=== PATIENT | male | born 1975 | race African-American/Black ===

== ENCOUNTER 2018-02-13 05:42 | Inpatient (IN) | payer OTHER ==
[~2018-02-13] VITALS: Ht 172.7 cm; Wt 71.2 kg
[~2018-02-13 05:42] MED LIST: NKM
[2018-02-13] MEDS ORDERED: oxyCONTIN 20mg tab ORAL ONE (06:00)
[2018-02-13] MEDS ORDERED: ceFAZolin 1gm in D5W 55ml IVPB ONE (06:00)
[2018-02-13] MEDS ORDERED: celeBREX 200mg Cap **SURGERY PATIENTS ONLY ORAL ONE (06:00)
[2018-02-27] VITALS (12 sets, daily range): BP systolic 120–154; BP diastolic 69–96
--- NOTE | 2018-02-27 06:55 | Pre-Procedure Note/Attestation ---
Pre-Procedure Note/Attestation Complete Prior to Procedure Planned Procedure: right Procedure Narrative: rt total hip arthroplasty Indications for Procedure Pre-Operative Diagnosis: rt hip arthritis Attestation I attest that I discussed the nature of the procedure; its benefits; risks and complications; and alternatives (and the risks and benefits of such alternatives ), prior to the procedure, with the patient (or the patient's legal member service representative). I attest that, if there was a reasonable possibility of needing a blood transfusion, the patient (or the patient's legal member service representative) was given the [facility] standardized written summary, pursuant to the Patrice Yue Blood Safety Act ([place] Health and Safety Code # 1645, as amended). I attest that I re-evaluated the patient just prior to the surgery and that there has been no change in the patient's H&P, except as documented below: none Roney Rubin MD Feb 27, 2018 06:55
[2018-02-27] MEDS ORDERED: oxyCONTIN 20mg tab ORAL ONE (07:00)
[2018-02-27] MEDS ORDERED: celeBREX 200mg Cap **SURGERY PATIENTS ONLY ORAL ONE (07:00)
[2018-02-27] MEDS ORDERED: ceFAZolin sod 1 GM in NS 55 ML IVPB ONE (07:00)
[2018-02-27] MEDS ORDERED: HYDROcodone/Acetamin 7.5/325 tab ORAL PRN (07:15)
[2018-02-27] MEDS ORDERED: HYDROmorphone 1mg/ml Carpuject SUBQ PRN (07:15)
[2018-02-27] MEDS ORDERED: Milk of Magnesia 30ml Ud ORAL PRN (07:15)
[2018-02-27] MEDS ORDERED: Duramorph PF 5mg/10ml amp ONE (08:17)
[2018-02-27] MEDS ORDERED: Bupivacaine 0.5% Inj 30 ml vial INJ ONE (08:18)
[2018-02-27] MEDS ORDERED: Bacitracin 50000 Units Vial ONE (08:32)
[2018-02-27] MEDS ORDERED: Lidocaine 1% MPF 10mg/ml 5ml ONE (08:44)
[2018-02-27] MEDS ORDERED: Midazolam 2mg/2ml Inj ONE (08:44)
[2018-02-27] MEDS ORDERED: Propofol 200mg/20ml IV ONE (08:44)
[2018-02-27] MEDS ORDERED: fentaNYL 100 mcg/2 mL IV ONE (08:44)
[2018-02-27] MEDS ORDERED: Tranexamic Acid 1,000 MG in NS 65 ML IVPB ONE (08:45)
[2018-02-27] MEDS ORDERED: LR 1000ml ONE (09:00)
[2018-02-27] MEDS ORDERED: NS Irrig 1000ml ONE (09:00)
[2018-02-27] MEDS ORDERED: Sterile Water Irrig 1000ml IRRIG ONE (09:00)
[2018-02-27] MEDS ORDERED: LR 1000ml 1,000 ML IVLG SCH (10:18)
--- NOTE | 2018-02-27 10:18 | Anethesia Preoperative Eval ---
Anesthesia Pre-op PMH/ROS General Date of Evaluation: Feb 27, 2018 Time of Evaluation: 09:05 Anesthesiologist: Nilson ASA Score: ASA 2 Mallampati Score Class I : Soft palate, uvula, fauces, pillars visible Class II: Soft palate, uvula, fauces visible Class III: Soft palate, base of uvula visible Class IV: Only hard plate visible Mallampati Classification: Class II Surgeon: Caryn Diagnosis: R hip DJD Surgical Procedure: R hip arthroplasty Anesthesia History: none Family History: no anesthesia problems Allergies: Coded Allergies: No Known Allergies (Unverified , 02/08/18) Medications: see eMAR Past Medical History Cardiovascular: Denies: HTN, CAD, DE, valve dz, arrhythmia, other Pulmonary: Denies: asthma, COPD, JESSEE, other Gastrointestinal/Genitourinary: Reports: GERD - mild; Denies: CRI, ESRD, other Neurologic/Psychiatric: Reports: depression/anxiety, other - chronic pain; Denies: dementia, CVA, TIA Endocrine: Denies: DM, hypothyroidism, steroids, other HEENT: Denies: cataract (L), cataract (R), glaucoma, SOKAOGON (L), SOKAOGON (R), other Hematology/Immune: Denies: anemia, DVT, bleeding disorder, other Musculoskeletal/Integumentary: Reports: DJD; Denies: OA, RA, DDD, edema, other PMH Narrative: as above PSxH Narrative: R femur ORIF and hardware removal Anesthesia Pre-op Phys. Exam Physician Exam Last Vital Signs Date Time Temp Pulse Resp B/P (MAP) Pulse Ox O2 Delivery O2 Flow Rate FiO2 02/27/18 07:33 Room Air 02/27/18 07:10 97.3 60 18 128/84 (99) 100 97.3 Constitutional: NAD Neurologic: CN 2-12 intact Cardiovascular: RRR, no M/R/G Respiratory: CTA Gastrointestinal: S/NT/ND Airway Exam Mallampati Score: Class II MO: full Neck: flexible ROM: full Teeth: intact Dentures: no upper, no lower Anesthesia Pre-op A/P Labs see chart Studies Pre-op Studies: EKG - NSR Risk Assessment & Plan Assessment: ASA 2 Plan: SAB with GA LMA for airway. Status Change Before Surgery: No Pre-Antibiotics Drug: Ancef 2gr. Given Within 1 Hr of Incision: Yes Time Given: 10:02 Aleksandr Devine MD Feb 27, 2018 10:18
[2018-02-27] MEDS ORDERED: Bacitracin 50000 Units Vial IRRIG ONE (10:26)
[2018-02-27] MEDS ORDERED: NS Irrig 2000ml IRRIG ONE (10:27)
[2018-02-27] MEDS ORDERED: fentaNYL 100 mcg/2 mL IV PRN (10:30)
[2018-02-27] MEDS ORDERED: Midazolam 2mg/2ml Inj IVP PRN (10:30)
[2018-02-27] MEDS ORDERED: DiphenhydrAMINE 50mg/ml Inj IVP PRN (10:30)
[2018-02-27] MEDS ORDERED: Sodium Chloride 10ml vial INJ ONE (10:37)
[2018-02-27] MEDS ORDERED: ePHEDrine 50mg/ml Inj ONE (10:37)
--- NOTE | 2018-02-27 12:14 | Brief Operative Note ---
Immediate Post Operative Note Operative Note Chief Complaint: rt hip pain Pre-op Diagnosis: rt hip avn Procedure: rt total hip arthroplasty Post-op Diagnosis: same as pre-op Findings: consistent w/pre-op dx studies Surgeon: md jameson [employer] Project Manager: denice hoffman Anesthesiologist: md frandy Anesthesia: general, regional Specimen: yes Complications: none Condition: stable Fluids: ns Estimated Blood Loss: minimal Drains: none Implant(s) used?: Yes - carranza and nephPatricia Varner Feb 27, 2018 12:14
--- NOTE | 2018-02-27 12:22 | Immediate Post-Op Evaluation ---
Immediate Post-Op Evalulation Immediate Post-Op Evalulation Procedure: R total hip arthroplasty Date of Evaluation: Feb 27, 2018 Time of Evaluation: 12:21 IV Fluids: 1500 Blood Products: none Estimated Blood Loss: 150 Urinary Output: 100 Blood Pressure Systolic: 154 Blood Pressure Diastolic: 87 Pulse Rate: 86 Respiratory Rate: 20 O2 Sat by Pulse Oximetry: 99 Temperature (Fahrenheit): 97.9 Pain Score (1-10): 1 Nausea: No Vomiting: No Complications none Patient Status: reacts, patent, none Hydration Status: adequate Aleksandr Devine MD Feb 27, 2018 12:22
[2018-02-27] MEDS: D5 1/2NS w/KCl 20mEq 1,000 ML IV SCH (14:41)
--- NOTE | 2018-02-27 15:35 | Diagnostic Imaging Report ---
Indication: Intraoperative imaging during right hip arthroplasty by Dr. Saldana for Technique: Plain radiograph of the pelvis Comparison: none Findings: Intraoperative image demonstrates the acetabular cup of a right hip arthroplasty prosthesis and a femoral broach in place. A Monzon catheter is noted Impression: Intraoperative imaging, as described
[2018-02-27] MEDS: ceFAZolin 2gm/50ml Premix 50 ML IV SCH (16:58)
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
[2018-02-27] MEDS: Docusate 100mg cap ORAL SCH (18:37)
[2018-02-27] MEDS: oxyCONTIN 20mg tab ORAL SCH (20:51)
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
[2018-02-28] VITALS: BP 109/66
[2018-02-28] MEDS: ceFAZolin 2gm/50ml Premix 50 ML IV SCH (00:35)
[2018-02-28 04:00] VITALS: BP 127/81
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
[2018-02-28] MEDS: D5 1/2NS w/KCl 20mEq 1,000 ML IV SCH ×2 (04:56→17:15)
[2018-02-28 06:37] LABS: BASOPHILS % (AUTO) 0.9 % (0.0-2.0); EOSINOPHILS % (AUTO) 0.1 % (0.0-3.0); HEMATOCRIT 37.5 % (42.0-52.0); HEMOGLOBIN 12.6 G/DL (14.2-18.0); LYMPHOCYTES % (AUTO) 11.6 % (20.0-45.0); MEAN CORPUSCULAR VOLUME 94 FL (80-99); NEUTROPHILS % (AUTO) 79.4 % (45.0-75.0); PLATELET COUNT 249 K/UL (150-450); RED BLOOD COUNT 3.97 M/UL (4.70-6.10); RED CELL DISTRIBUTION WIDTH 11.2 % (11.6-14.8); WHITE BLOOD COUNT 8.9 K/UL (4.8-10.8)
[2018-02-28 06:48] LABS: ANION GAP 5 mmol/L (5-15); BLOOD UREA NITROGEN 6 mg/dL (7-18); CALCIUM 8.8 MG/DL (8.5-10.1); CARBON DIOXIDE 29 MMOL/L (21-32); CHLORIDE 100 MMOL/L (98-107); CREATININE 1.1 MG/DL (0.55-1.30); POTASSIUM 4.4 MMOL/L (3.5-5.1); SODIUM 134 MMOL/L (136-145)
[2018-02-28 08:00] VITALS: BP 109/80
--- NOTE | 2018-02-28 08:35 | Orthopedic Progress Note ---
Orthopedic - Progress Note Subjective Symptoms: improved Objective Laboratory Tests Test 02/28/18 05:30 White Blood Count 8.9 K/UL (4.8-10.8) Red Blood Count 3.97 M/UL (4.70-6.10) L Hemoglobin 12.6 G/DL (14.2-18.0) L Hematocrit 37.5 % (42.0-52.0) L Mean Corpuscular Volume 94 FL (80-99) Mean Corpuscular Hemoglobin 31.8 PG (27.0-31.0) H Mean Corpuscular Hemoglobin Concent 33.7 G/DL (32.0-36.0) Red Cell Distribution Width 11.2 % (11.6-14.8) L Platelet Count 249 K/UL (150-450) Mean Platelet Volume 9.0 FL (6.5-10.1) Neutrophils (%) (Auto) 79.4 % (45.0-75.0) H Lymphocytes (%) (Auto) 11.6 % (20.0-45.0) L Monocytes (%) (Auto) 8.0 % (1.0-10.0) Eosinophils (%) (Auto) 0.1 % (0.0-3.0) Basophils (%) (Auto) 0.9 % (0.0-2.0) Sodium Level 134 MMOL/L (136-145) L Potassium Level 4.4 MMOL/L (3.5-5.1) Chloride Level 100 MMOL/L (98-107) Carbon Dioxide Level 29 MMOL/L (21-32) Anion Gap 5 mmol/L (5-15) Blood Urea Nitrogen 6 mg/dL (7-18) L Creatinine 1.1 MG/DL (0.55-1.30) Estimat Glomerular Filtration Rate > 60 mL/min (>60) Glucose Level 133 MG/DL (74-106) H Calcium Level 8.8 MG/DL (8.5-10.1) Last 24 Hour Vital Signs Date Time Temp Pulse Resp B/P (MAP) Pulse Ox O2 Delivery O2 Flow Rate FiO2 02/28/18 04:00 98.0 89 20 127/81 (96) 100 98.0 02/28/18 00:00 97.5 89 20 109/66 (80) 100 97.5 02/27/18 21:00 Room Air 02/27/18 20:00 97.2 76 20 121/74 (90) 99 97.2 02/27/18 16:00 97.6 81 20 120/69 (86) 99 97.6 02/27/18 14:00 Room Air 02/27/18 13:45 97.2 89 18 144/77 (99) 99 97.2 02/27/18 13:30 97.4 84 18 151/78 (102) 97 97.4 02/27/18 13:24 97.6 77 17 151/84 97 Room Air 97.6 02/27/18 13:19 78 15 144/85 96 Room Air 02/27/18 13:00 72 18 147/86 97 Room Air 02/27/18 12:45 79 15 150/93 96 Room Air 02/27/18 12:30 86 18 148/96 100 Simple Mask 6 02/27/18 12:22 208.2 86 20 99 02/27/18 12:20 86 20 154/89 100 Simple Mask 6 02/27/18 12:14 97.5 86 22 150/87 100 Simple Mask 6 97.5 Intake and Output 02/27/18 02/28/18 19:00 07:00 Intake Total 840 ml 1762.5 ml Output Total 1100 ml 1000 ml Balance -260 ml 762.5 ml Intake Oral 240 ml 1000 ml IV Total 600 ml 762.5 ml Output Urine Total 800 ml 500 ml Emesis 500 ml Estimated Blood Loss 300 ml # Voids 1 Laboratory Tests Test 02/28/18 05:30 White Blood Count 8.9 K/UL (4.8-10.8) Red Blood Count 3.97 M/UL (4.70-6.10) L Hemoglobin 12.6 G/DL (14.2-18.0) L Hematocrit 37.5 % (42.0-52.0) L Mean Corpuscular Volume 94 FL (80-99) Mean Corpuscular Hemoglobin 31.8 PG (27.0-31.0) H Mean Corpuscular Hemoglobin Concent 33.7 G/DL (32.0-36.0) Red Cell Distribution Width 11.2 % (11.6-14.8) L Platelet Count 249 K/UL (150-450) Mean Platelet Volume 9.0 FL (6.5-10.1) Neutrophils (%) (Auto) 79.4 % (45.0-75.0) H Lymphocytes (%) (Auto) 11.6 % (20.0-45.0) L Monocytes (%) (Auto) 8.0 % (1.0-10.0) Eosinophils (%) (Auto) 0.1 % (0.0-3.0) Basophils (%) (Auto) 0.9 % (0.0-2.0) Sodium Level 134 MMOL/L (136-145) L Potassium Level 4.4 MMOL/L (3.5-5.1) Chloride Level 100 MMOL/L (98-107) Carbon Dioxide Level 29 MMOL/L (21-32) Anion Gap 5 mmol/L (5-15) Blood Urea Nitrogen 6 mg/dL (7-18) L Creatinine 1.1 MG/DL (0.55-1.30) Estimat Glomerular Filtration Rate > 60 mL/min (>60) Glucose Level 133 MG/DL (74-106) H Calcium Level 8.8 MG/DL (8.5-10.1) Wound: clean, dry, intact Drains: none Neuro Status: other - can wiggle toes and has intact sensation. cannot dorsiflex- possibly from spinal. will follow Vascular Status: normal Additional Comments xray excellent Assessment Post-op Diagnosis POD 1 Procedure Performed rt total hip arthroplasty Plan Plan: PT, discharge plan - likely home monday with home care/DME, other - will monitor neuro status Patricia Zamora Feb 28, 2018 08:35
--- NOTE | 2018-02-28 08:38 | 48 Hour Post Anesthesia Eval ---
Post Anesthesia Evaluation Procedure: R total hip arthroplasty Date of Evaluation: Feb 28, 2018 Time of Evaluation: 08:37 Blood Pressure Systolic: 124 0: 76 Pulse Rate: 72 Respiratory Rate: 20 Temperature (Fahrenheit): 97.6 O2 Sat by Pulse Oximetry: 98 Airway: patent Nausea: No Vomiting: No Pain Intensity: 3 Hydration Status: adequate Cardiopulmonary Status: stable Mental Status/LOC: patient returned to baseline Follow-up Care/Observations: n/a Post-Anesthesia Complications: none Follow-up care needed: N/A Aleksandr Devine MD Feb 28, 2018 08:38
[2018-02-28] MEDS: celeBREX 200mg Cap **SURGERY PATIENTS ONLY ORAL SCH (09:25)
[2018-02-28] MEDS: Docusate 100mg cap ORAL SCH ×3 (09:25→17:15)
[2018-02-28] MEDS: oxyCONTIN 20mg tab ORAL SCH ×2 (09:26→20:59)
[2018-02-28] MEDS: Enoxaparin 40mg Inj SUBQ SCH (09:27)
--- NOTE | 2018-02-28 10:17 | Internal Med Progress Note ---
Subjective Date of Service: Feb 28, 2018 Physician Name Herb Diaz Attending Physician Roney Rubin MD Current Medications Medications (Trade) Dose Ordered Sig/Sharon Route PRN Reason Start Time Stop Time Status Last Admin Dose Admin Acetaminophen (Tylenol) 650 mg Q4H PRN ORAL Mild Pain (Pain Scale 1-3) 02/27/18 07:15 03/29/18 07:14 Acetaminophen (Tylenol) 650 mg Q4H PRN ORAL temp>100 02/27/18 07:15 03/29/18 07:14 Acetaminophen/ Hydrocodone Bitart ([place] 5/325) 2 tab Q6H PRN ORAL Severe Pain (Pain Scale 7-10) 02/27/18 07:15 03/06/18 07:14 Acetaminophen/ Hydrocodone Bitart ([place] 7.5/325) 1 tab Q4H PRN ORAL Moderate Pain (Pain Scale 4-6) 02/27/18 07:15 03/06/18 07:14 02/28/18 04:55 Celecoxib (CeleBREX) 200 mg DAILY ORAL 02/28/18 09:00 03/30/18 08:59 02/28/18 09:25 Dextrose/ Electrolytes 1,000 ml @ 75 mls/hr [id number] IV 02/27/18 15:00 03/29/18 14:59 02/28/18 04:56 Docusate Sodium (Colace) 100 mg THREE TIMES A DAY ORAL 02/27/18 18:00 03/29/18 17:59 02/28/18 09:25 Enoxaparin Sodium (Lovenox) 40 mg DAILY SUBQ 02/28/18 09:00 03/30/18 08:59 02/28/18 09:27 Ferrous Sulfate (Feosol) 325 mg TIPC ORAL 02/27/18 18:00 03/29/18 17:59 02/28/18 09:24 Hydromorphone HCl (Dilaudid) 1 mg Q4H PRN SUBQ Mild Pain (Pain Scale 1-3) 02/27/18 07:15 03/06/18 07:14 Hydromorphone HCl (Dilaudid) 2 mg Q3H PRN SUBQ Severe Pain (Pain Scale 7-10) 02/27/18 07:15 03/06/18 07:14 02/28/18 00:47 Hydromorphone HCl (Dilaudid) 2 mg Q4H PRN SUBQ Moderate Pain (Pain Scale 4-6) 02/27/18 07:15 03/06/18 07:14 Magnesium Hydroxide (Mom) 30 ml DAILYPRN PRN ORAL Constipation 02/27/18 07:15 03/29/18 07:14 Oxycodone HCl (OxyCONTIN) 20 mg EVERY 12 HOURS ORAL 02/27/18 21:00 03/06/18 20:59 02/28/18 09:26 Prochlorperazine (Compazine) 10 mg Q6H PRN IVP Nausea & Vomiting 02/27/18 07:15 03/29/18 07:14 02/27/18 15:34 Temazepam (Restoril) 7.5 mg DAILY PRN ORAL Insomnia 02/27/18 20:00 03/06/18 19:59 Allergies: Coded Allergies: No Known Allergies (Unverified , 02/08/18) ROS Limited/Unobtainable: No Constitutional: Reports: no symptoms HEENT: Reports: no symptoms Cardiovascular: Reports: no symptoms Respiratory: Reports: no symptoms Gastrointestinal/Abdominal: Reports: no symptoms Genitourinary: Reports: no symptoms Neurologic/Psychiatric: Reports: no symptoms Subjective 43 YO M admitted with osteoarthritis right hip. S/P right total hip arthroplasty 02/27/18. Cover for [facility]-Dr Jordan Objective Last Vital Signs Date Time Temp Pulse Resp B/P (MAP) Pulse Ox O2 Delivery O2 Flow Rate FiO2 02/28/18 08:38 207.7 72 20 98 02/28/18 08:00 109/80 (90) 02/27/18 21:00 Room Air 02/27/18 12:30 6 General Appearance: WD/WN, no apparent distress, alert EENT: PERRL/EOMI, normal ENT inspection Neck: non-tender, normal alignment, supple, normal inspection Cardiovascular: normal peripheral pulses, normal rate, regular rhythm, no gallop/murmur, no JVD Respiratory/Chest: chest wall non-tender, lungs clear, normal breath sounds, no respiratory distress, no accessory muscle use Abdomen: normal bowel sounds, non tender, soft, no organomegaly, no mass Extremities: normal range of motion Neurologic: plant director II-XII grossly normal, no motor/sensory deficits Skin: normal pigmentation, warm/dry Laboratory Tests Test 02/28/18 05:30 White Blood Count 8.9 K/UL (4.8-10.8) Red Blood Count 3.97 M/UL (4.70-6.10) L Hemoglobin 12.6 G/DL (14.2-18.0) L Hematocrit 37.5 % (42.0-52.0) L Mean Corpuscular Volume 94 FL (80-99) Mean Corpuscular Hemoglobin 31.8 PG (27.0-31.0) H Mean Corpuscular Hemoglobin Concent 33.7 G/DL (32.0-36.0) Red Cell Distribution Width 11.2 % (11.6-14.8) L Platelet Count 249 K/UL (150-450) Mean Platelet Volume 9.0 FL (6.5-10.1) Neutrophils (%) (Auto) 79.4 % (45.0-75.0) H Lymphocytes (%) (Auto) 11.6 % (20.0-45.0) L Monocytes (%) (Auto) 8.0 % (1.0-10.0) Eosinophils (%) (Auto) 0.1 % (0.0-3.0) Basophils (%) (Auto) 0.9 % (0.0-2.0) Sodium Level 134 MMOL/L (136-145) L Potassium Level 4.4 MMOL/L (3.5-5.1) Chloride Level 100 MMOL/L (98-107) Carbon Dioxide Level 29 MMOL/L (21-32) Anion Gap 5 mmol/L (5-15) Blood Urea Nitrogen 6 mg/dL (7-18) L Creatinine 1.1 MG/DL (0.55-1.30) Estimat Glomerular Filtration Rate > 60 mL/min (>60) Glucose Level 133 MG/DL (74-106) H Calcium Level 8.8 MG/DL (8.5-10.1) Intake and Output 02/27/18 02/28/18 19:00 07:00 Intake Total 840 ml 1762.5 ml Output Total 1100 ml 1000 ml Balance -260 ml 762.5 ml Intake Oral 240 ml 1000 ml IV Total 600 ml 762.5 ml Output Urine Total 800 ml 500 ml Emesis 500 ml Estimated Blood Loss 300 ml # Voids 1 Assessment/Plan Problem List: (1) Right hip pain (2) Arthritis of right hip Assessment & Plan: S/P right total hip arthroplasty-see surgery note. Herb Diaz MD Feb 28, 2018 10:17
[2018-02-28 12:00] VITALS: BP 126/86
[2018-02-28 16:00] VITALS: BP 123/80
[2018-02-28 20:00] VITALS: BP 143/89
[2018-03-01] VITALS: BP 126/83
[2018-03-01 04:00] VITALS: BP 131/85
[2018-03-01 06:49] LABS: BASOPHILS % (AUTO) 0.7 % (0.0-2.0); EOSINOPHILS % (AUTO) 0.6 % (0.0-3.0); HEMATOCRIT 31.7 % (42.0-52.0); HEMOGLOBIN 10.5 G/DL (14.2-18.0); LYMPHOCYTES % (AUTO) 16.7 % (20.0-45.0); MEAN CORPUSCULAR VOLUME 94 FL (80-99); MONOCYTES % (AUTO) 9.4 % (1.0-10.0); NEUTROPHILS % (AUTO) 72.6 % (45.0-75.0); PLATELET COUNT 216 K/UL (150-450); RED BLOOD COUNT 3.37 M/UL (4.70-6.10); RED CELL DISTRIBUTION WIDTH 10.9 % (11.6-14.8); WHITE BLOOD COUNT 8.1 K/UL (4.8-10.8)
--- NOTE | 2018-03-01 07:44 | Orthopedic Progress Note ---
Orthopedic - Progress Note Subjective Additional Comments Pain under control. Ambulating pain. Hip pain much better Objective Last 24 Hour Vital Signs Date Time Temp Pulse Resp B/P (MAP) Pulse Ox O2 Delivery O2 Flow Rate FiO2 03/01/18 04:00 98.5 102 18 131/85 (100) 98 98.5 03/01/18 00:00 98.5 100 17 126/83 (97) 97 98.5 02/28/18 21:00 Room Air 02/28/18 20:00 98.7 104 19 143/89 (107) 98 98.7 02/28/18 16:45 Room Air 02/28/18 16:00 98.1 100 20 123/80 (94) 97 98.1 02/28/18 14:06 98.1 02/28/18 13:36 98.1 02/28/18 12:00 98.1 101 21 126/86 (99) 100 98.1 02/28/18 09:00 Room Air 02/28/18 08:38 207.7 72 20 98 02/28/18 08:00 97.8 101 20 109/80 (90) 98 97.8 Intake and Output 02/28/18 03/01/18 19:00 07:00 Intake Total 1380 ml 510 ml Output Total 700 ml Balance 680 ml 510 ml Intake Oral 480 ml 360 ml IV Total 900 ml 150 ml Output Urine Total 700 ml # Voids 4 Laboratory Tests Test 03/01/18 05:50 White Blood Count 8.1 K/UL (4.8-10.8) Red Blood Count 3.37 M/UL (4.70-6.10) L Hemoglobin 10.5 G/DL (14.2-18.0) L Hematocrit 31.7 % (42.0-52.0) L Mean Corpuscular Volume 94 FL (80-99) Mean Corpuscular Hemoglobin 31.1 PG (27.0-31.0) H Mean Corpuscular Hemoglobin Concent 33.1 G/DL (32.0-36.0) Red Cell Distribution Width 10.9 % (11.6-14.8) L Platelet Count 216 K/UL (150-450) Mean Platelet Volume 8.8 FL (6.5-10.1) Neutrophils (%) (Auto) 72.6 % (45.0-75.0) Lymphocytes (%) (Auto) 16.7 % (20.0-45.0) L Monocytes (%) (Auto) 9.4 % (1.0-10.0) Eosinophils (%) (Auto) 0.6 % (0.0-3.0) Basophils (%) (Auto) 0.7 % (0.0-2.0) Wound: clean, dry Drains: none Additional Comments Neuro exam shows persistent loss of dorsiflexion. However, sensation is completely intact dorsal/Plantar/Medial/lateral aspect of the foot Assessment Post-op Diagnosis Right LISA Plan Plan: PT, pain management Additional Comments Continue to monitor motor neurapraxia, Extensive scar tissue noted around sciatic nerve from prior surgery. 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 Will continue to monitor. Plan on Discharge in the next few days Roney Rubin MD Mar 01, 2018 07:44
[2018-03-01 08:00] VITALS: BP 125/80
[2018-03-01] MEDS: celeBREX 200mg Cap **SURGERY PATIENTS ONLY ORAL SCH (08:53)
[2018-03-01] MEDS: Docusate 100mg cap ORAL SCH ×3 (08:54→17:17)
[2018-03-01] MEDS: oxyCONTIN 20mg tab ORAL SCH ×2 (08:54→20:45)
[2018-03-01] MEDS: Enoxaparin 40mg Inj SUBQ SCH (08:55)
[2018-03-01 12:00] VITALS: BP 140/91
[2018-03-01 16:00] VITALS: BP 131/82
[2018-03-01] MEDS: Norco 5mg/325mg tab ORAL PRN (19:38)
[2018-03-01 20:00] VITALS: BP 138/96
[2018-03-02] VITALS: BP 121/89
[2018-03-02 04:00] VITALS: BP 127/85
[2018-03-02] MEDS: Norco 5mg/325mg tab ORAL PRN ×2 (04:26→13:32)
[2018-03-02 07:06] LABS: BASOPHILS % (AUTO) 1.2 % (0.0-2.0); EOSINOPHILS % (AUTO) 0.8 % (0.0-3.0); HEMATOCRIT 26.4 % (42.0-52.0); HEMOGLOBIN 8.8 G/DL (14.2-18.0); LYMPHOCYTES % (AUTO) 11.7 % (20.0-45.0); MEAN CORPUSCULAR VOLUME 93 FL (80-99); MONOCYTES % (AUTO) 12.1 % (1.0-10.0); NEUTROPHILS % (AUTO) 74.3 % (45.0-75.0); PLATELET COUNT 219 K/UL (150-450); RED BLOOD COUNT 2.85 M/UL (4.70-6.10); RED CELL DISTRIBUTION WIDTH 10.8 % (11.6-14.8); WHITE BLOOD COUNT 7.4 K/UL (4.8-10.8)
--- NOTE | 2018-03-02 07:59 | Orthopedic Progress Note ---
Orthopedic - Progress Note Subjective Symptoms: improved Objective Laboratory Tests Test 03/02/18 06:43 White Blood Count 7.4 K/UL (4.8-10.8) Red Blood Count 2.85 M/UL (4.70-6.10) L Hemoglobin 8.8 G/DL (14.2-18.0) L Hematocrit 26.4 % (42.0-52.0) L Mean Corpuscular Volume 93 FL (80-99) Mean Corpuscular Hemoglobin 30.9 PG (27.0-31.0) Mean Corpuscular Hemoglobin Concent 33.4 G/DL (32.0-36.0) Red Cell Distribution Width 10.8 % (11.6-14.8) L Platelet Count 219 K/UL (150-450) Mean Platelet Volume 8.9 FL (6.5-10.1) Neutrophils (%) (Auto) 74.3 % (45.0-75.0) Lymphocytes (%) (Auto) 11.7 % (20.0-45.0) L Monocytes (%) (Auto) 12.1 % (1.0-10.0) H Eosinophils (%) (Auto) 0.8 % (0.0-3.0) Basophils (%) (Auto) 1.2 % (0.0-2.0) Last 24 Hour Vital Signs Date Time Temp Pulse Resp B/P (MAP) Pulse Ox O2 Delivery O2 Flow Rate FiO2 03/02/18 04:00 98.4 99 19 127/85 (99) 100 98.4 03/02/18 00:00 98.8 95 18 121/89 (100) 97 98.8 03/01/18 21:00 Room Air 03/01/18 20:00 99.3 110 20 138/96 (110) 99 99.3 03/01/18 16:00 98.0 101 20 131/82 (98) 97 98.0 03/01/18 12:00 98.6 102 20 140/91 (107) 97 98.6 03/01/18 09:09 Room Air 03/01/18 08:54 98.5 03/01/18 08:41 98.5 03/01/18 08:11 98.5 03/01/18 08:00 98.4 119 20 125/80 (95) 97 98.4 Intake and Output 03/01/18 03/02/18 19:00 07:00 Intake Total 1000 ml 480 ml Balance 1000 ml 480 ml Intake Oral 1000 ml 480 ml # Voids 4 2 Laboratory Tests Test 03/02/18 06:43 White Blood Count 7.4 K/UL (4.8-10.8) Red Blood Count 2.85 M/UL (4.70-6.10) L Hemoglobin 8.8 G/DL (14.2-18.0) L Hematocrit 26.4 % (42.0-52.0) L Mean Corpuscular Volume 93 FL (80-99) Mean Corpuscular Hemoglobin 30.9 PG (27.0-31.0) Mean Corpuscular Hemoglobin Concent 33.4 G/DL (32.0-36.0) Red Cell Distribution Width 10.8 % (11.6-14.8) L Platelet Count 219 K/UL (150-450) Mean Platelet Volume 8.9 FL (6.5-10.1) Neutrophils (%) (Auto) 74.3 % (45.0-75.0) Lymphocytes (%) (Auto) 11.7 % (20.0-45.0) L Monocytes (%) (Auto) 12.1 % (1.0-10.0) H Eosinophils (%) (Auto) 0.8 % (0.0-3.0) Basophils (%) (Auto) 1.2 % (0.0-2.0) Wound: clean, dry, intact Drains: none Neuro Status: other - sensation intact, cannot dorsiflex- still evidence of foot drop Vascular Status: normal Assessment Post-op Diagnosis POD 3 Procedure Performed rt total hip arthroplasty Plan Plan: discharge to home - home today with home care. will f/u as outpt and continue to monitor neurostatus Patricia Zamora Mar 02, 2018 07:59
[2018-03-02 08:00] VITALS: BP 139/86
--- NOTE | 2018-03-02 08:00 | Discharge Summary ---
Discharge Summary Hospital Course Date of Admission Feb 27, 2018 at 05:45 Date of Discharge 03/02/18 Admitting Diagnosis rt hip AVN HPI Chase Moon is a 43 year old male who was admitted on Feb 27, 2018 at 05:45 for Trochanteric Bursitis Right Hip Consultations MD Julian Procedures Rt daniel Hospital Course rt sided foot drop being monitored Discharge Condition Upon Discharge: improving, stable Discharge Disposition Patient was discharged to home with home health Patricia Zamora Mar 02, 2018 08:00
[2018-03-02] MEDS: Docusate 100mg cap ORAL SCH ×2 (08:45→13:28)
[2018-03-02] MEDS: celeBREX 200mg Cap **SURGERY PATIENTS ONLY ORAL SCH (08:45)
[2018-03-02] MEDS: oxyCONTIN 20mg tab ORAL SCH (08:46)
[2018-03-02] MEDS: Enoxaparin 40mg Inj SUBQ SCH (08:47)
[2018-03-02 12:00] VITALS: BP 139/84
[2018-03-02] MEDS ORDERED: NS 500ML ONE (13:59)
--- NOTE | 2018-03-04 20:22 | Diagnostic Imaging Report ---
APPROVED REPORT CPT Code: 64652 Present Symptoms Lower Extremity Pain: BILATERAL: Imaging reveals a patent deep venous system bilaterally. There is no evidence of thrombus within the femoral, popliteal or tibial segments. The greater saphenous veins are also within normal limits. Doppler indicates normal spontaneous flow within these segments.
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
== END 2018-03-02 14:00 | disposition home health service (06) | DRG 470 ==
LOC: UNDOADMIN 05:42 → SDSOVERFLO 05:42 → 3E 02-27 13:35
PROC: 0SR906A Replacement of Right Hip Joint with Oxidized Zirconium on Polyethylene Synthetic Substitute, Uncemented, Open Approach (ICD-10-PCS; principal; 2018-02-27 09:00)
DX: M16.11 Unilateral primary osteoarthritis, right hip (principal); M87.251 Osteonecrosis due to previous trauma, right femur
CPT/HCPCS: 36415; 72170; 80048; 85025; 86850; 86900; 86901; 86920; 87081; 93970; 94003; 94150; J2250